=== PATIENT | male | born 1950 | race Caucasian/White ===

== ENCOUNTER 2016-10-01 16:03 | Inpatient (IN) | payer BC, OTHER ==
[~2016-10-01 16:03] MED LIST: ACIP20TA19
[2016-10-01 16:05] VITALS: BP 176/99; PULSE 60; RESP 24; TEMP 97.3; O2SAT 99
--- NOTE | 2016-10-01 16:07 | PD ---
Physical Exam Time Seen by Provider: 16:07 Narrative 65 y/o male presents with 6 hours of cp, dizziness, nausea. Worse when breathing deep. Vital signs reviewed. Seen at triage desk. Awaiting bed placement. Data Data Last Documented VS Vital Signs Date Time Temp Pulse Resp B/P Pulse Ox O2 Delivery O2 Flow Rate FiO2 10/01/16 16:05 97.3 60 24 176/99 99 MDM Medical Record Reviewed: Yes Supervised Visit with DIOGO: Alex Oliver October 01, 2016 16:07
--- NOTE | 2016-10-01 16:30 | RADRPT ---
EXAM DATE/TIME: 10/01/2016 16:23 [facility] COMPARISON: No previous studies available for comparison. INDICATIONS : Mid-upper left chest pain and pain when breathing. MEDICAL HISTORY : None. SURGICAL HISTORY : None. ENCOUNTER: Initial ACUITY: 1 day PAIN SCORE: 10/10 LOCATION: Bilateral chest FINDINGS: A single view of the chest demonstrates bibasilar atelectasis. Heart and the upper limits of normal i n size. The cardiomediastinal contours are unremarkable. Osseous structures are intact. Cervical fu richard plate. CONCLUSION: Bibasilar atelectasis. Edi Christine MD on October 01, 2016 at 16:28 Board Certified Radiologist. This report was verified electronically.
[2016-10-01 16:42] LABS: AUTOMATED NEUTROPHIL # 9.5 TH/MM3 (1.8-7.7); BASOPHIL # 0.1 TH/MM3 (0-0.2); BASOPHIL % 0.4 % (0.0-2.0); EOSINOPHIL # 0.2 TH/MM3 (0-0.4); EOSINOPHIL % 1.2 % (0.0-4.0); HEMATOCRIT 46.4 % (39.0-51.0); HEMO FLAGS DIFF FINAL; LYMPH % 20.2 % (9.0-44.0); LYMPHOCYTE # 2.7 TH/MM3 (1.0-4.8); MEAN CORPUSCULAR HEMOGLOBIN 29.9 PG (27.0-34.0); MEAN CORPUSCULAR HGB CONC 34.8 % (32.0-36.0); NEUT % 70.2 % (16.0-70.0); PLATELET COUNT 313 TH/MM3 (150-450); RED BLOOD COUNT 5.39 MIL/MM3 (4.50-5.90); RED CELL DISTRIBUTION WIDTH 13.7 % (11.6-17.2); WHITE BLOOD COUNT 13.5 TH/MM3 (4.0-11.0)
[2016-10-01 16:57] LABS: ANION GAP 9 MEQ/L (5-15); BICARBONATE 30.3 MEQ/L (21.0-32.0); BLOOD UREA NITROGEN 15 MG/DL (7-18); CHLORIDE 100 MEQ/L (98-107); GLOMERULAR FILTRATION RATE 55 ML/MIN (>89); POTASSIUM 3.7 MEQ/L (3.5-5.1); SODIUM (NA) 139 MEQ/L (136-145)
[2016-10-01 17:02] LABS: CREATINE KINASE 166 U/L (39-308)
[2016-10-01 17:10] LABS: INDIRECT BILIRUBIN 1.8 MG/DL (0.0-0.8); TOTAL BILIRUBIN ADULT 2.8 MG/DL (0.2-1.0)
[2016-10-01 17:14] LABS: CKMB 1.7 NG/ML (0.5-3.6)
[2016-10-01] MEDS ORDERED: ONDANSETRON HCL 4 MG/2 ML VIAL IV PUSH ONE (17:30)
[2016-10-01] MEDS ORDERED: MORPHINE SULFATE 4 MG/ML INJ IV PUSH ONE ×2 (17:30→20:15)
[2016-10-01] MEDS ORDERED: SODIUM CHLORIDE 0.9% FLUSH 10 ML FLUSH IV FLUSH PRN ×2 (17:30→21:00)
[2016-10-01] MEDS ORDERED: SODIUM CHLOR 0.9% 1000 ML INJ 1,000 ML IV ONE (17:30)
--- NOTE | 2016-10-01 17:56 | PD ---
HPI Chief Complaint: Chest Pain Time Seen by Provider: 17:30 Travel History International Travel<30 days: No Contact w/Intl Traveler<30days: No Traveled to known affect area: No History of Present Illness HPI Patient is a 65-year-old male presenting to the emergency department for evaluation of chest pain. Patient states pain started 10:30 this morning, initially was substernal with radiation across the anterior chest wall. It was accompanied by nausea and a feeling of lightheadedness. Patient states pain is worse with inspiration. He denies any headache, fever, chills, vomiting, diarrhea. Patient reports left upper quadrant and epigastric abdominal pain. He reports his pain is a 10 out of 10. Patient states that he is a history of gallbladder issues for the last year, he's had outpatient ultrasounds and CAT scans performed. He denies any significant past medical history, he has no history of tobacco use, drug use and denies any alcohol use. His primary care provider is Dr. Rene Aj [facility] Past Medical History Medical History: Denies Significant Hx GERD: Yes Past Surgical History Other Surgery: Yes (cervical discectomy) Social History Alcohol Use: No Tobacco Use: No Substance Use: No Allergies-Medications (Allergen,Severity, Reaction): Coded Allergies: No Known Allergies (Verified , 10/01/16) Reported Meds & Prescriptions Reported Meds & Active Scripts Active No Active Prescriptions or Reported Medications Review of Systems Except as stated in HPI: all other systems reviewed are Neg General / Constitutional: No: Fever, Chills HENT: Positive: Lightheadedness Cardiovascular: Positive: Chest Pain or Discomfort Respiratory: No: Shortness of Breath Gastrointestinal: Positive: Nausea, Abdominal Pain, No: Vomiting, Diarrhea Genitourinary: No: Dysuria Neurologic: No: Dizziness, Focal Abnormalities, Headache, Change in Mentation Physical Exam Narrative GENERAL: Well-developed, well-nourished, alert male. Appears uncomfortable, in no acute distress. SKIN: Focused skin assessment warm/dry. HEAD: Atraumatic. Normocephalic. EYES: Pupils equal and round. No scleral icterus. No injection or drainage. ENT: No nasal bleeding or discharge. Mucous membranes pink and moist. NECK: Trachea midline. No JVD. CARDIOVASCULAR: Regular rate and rhythm. No murmur appreciated. RESPIRATORY: No accessory muscle use. Clear to auscultation. Breath sounds equal bilaterally. GASTROINTESTINAL: Abdomen soft, tender to palpation in epigastrium and right upper quadrant, no rebound, positive bowel sounds. MUSCULOSKELETAL: No obvious deformities. No clubbing. No cyanosis. No edema. NEUROLOGICAL: Awake and alert. No obvious cranial nerve deficits. Motor grossly within normal limits. Normal speech. PSYCHIATRIC: Appropriate mood and affect; insight and judgment normal. Data Data Last Documented VS Vital Signs Date Time Temp Pulse Resp B/P Pulse Ox O2 Delivery O2 Flow Rate FiO2 10/01/16 20:18 78 26 195/97 100 Nasal Cannula 2 10/01/16 16:05 97.3 Orders Electrocardiogram (10/01/16 16:08) Complete Blood Count With Diff (10/01/16 16:08) Basic Metabolic Panel (Bmp) (10/01/16 16:08) Ckmb (Isoenzyme) Profile (10/01/16 16:08) Troponin I (10/01/16 16:08) Chest, Single Ap (10/01/16 ) Hepatic Functional Panel (10/01/16 16:20) Lipase (10/01/16 16:20) CKMB (10/01/16 16:17) CKMB% (10/01/16 16:17) Lipase (10/01/16 17:19) Gamma Gt (Ggt) (10/01/16 17:19) Lactic Acid (10/01/16 17:19) Urinalysis - C+S If Indicated (10/01/16 17:19) Iv Access Insert/Monitor (10/01/16 17:19) Ecg Monitoring (10/01/16 17:19) Oximetry (10/01/16 17:19) Sodium Chloride 0.9% Flush (Ns Flush) (10/01/16 17:30) Morphine Inj (Morphine Inj) (10/01/16 17:30) Sodium Chlor 0.9% 1000 Ml Inj (Ns 1000 M (10/01/16 17:30) Ondansetron Inj (Zofran Inj) (10/01/16 17:30) Us Abdomen Complete (10/01/16 ) Ondansetron Inj (Zofran Inj) (10/01/16 19:45) Pantoprazole Inj (Protonix Inj) (10/01/16 19:45) Al-Mag Hy-Si 40-40-4 Mg/Ml Liq (Mag-Al P (10/01/16 19:45) Lidocaine 2% Viscous (Xylocaine 2% Visco (10/01/16 19:45) Morphine Inj (Morphine Inj) (10/01/16 20:15) Admit Order (Ed Use Only) (10/01/16 20:22) Labs Laboratory Tests Test 10/01/16 10/01/16 10/01/16 16:17 17:35 18:45 White Blood Count 13.5 TH/MM3 Red Blood Count 5.39 MIL/MM3 Hemoglobin 16.1 GM/DL Hematocrit 46.4 % Mean Corpuscular Volume 86.0 FL Mean Corpuscular Hemoglobin 29.9 PG Mean Corpuscular Hemoglobin 34.8 % Concent Red Cell Distribution Width 13.7 % Platelet Count 313 TH/MM3 Mean Platelet Volume 7.3 FL Neutrophils (%) (Auto) 70.2 % Lymphocytes (%) (Auto) 20.2 % Monocytes (%) (Auto) 8.0 % Eosinophils (%) (Auto) 1.2 % Basophils (%) (Auto) 0.4 % Neutrophils # (Auto) 9.5 TH/MM3 Lymphocytes # (Auto) 2.7 TH/MM3 Monocytes # (Auto) 1.1 TH/MM3 Eosinophils # (Auto) 0.2 TH/MM3 Basophils # (Auto) 0.1 TH/MM3 CBC Comment DIFF FINAL Differential Comment Sodium Level 139 MEQ/L Potassium Level 3.7 MEQ/L Chloride Level 100 MEQ/L Carbon Dioxide Level 30.3 MEQ/L Anion Gap 9 MEQ/L Blood Urea Nitrogen 15 MG/DL Creatinine 1.32 MG/DL Estimat Glomerular Filtration 55 ML/MIN Rate Random Glucose 156 MG/DL Calcium Level 9.5 MG/DL Total Bilirubin 2.8 MG/DL Direct Bilirubin 1.0 MG/DL Indirect Bilirubin 1.8 MG/DL Aspartate Amino Transf 182 U/L (AST/SGOT) Alanine Aminotransferase 129 U/L (ALT/SGPT) Alkaline Phosphatase 94 U/L Total Creatine Kinase 166 U/L Creatine Kinase MB 1.7 NG/ML Troponin I LESS THAN 0.02 NG/ML Total Protein 8.0 GM/DL Albumin 4.3 GM/DL Lipase 158 U/L 154 U/L Lactic Acid Level 1.8 mmol/L Gamma Glutamyl Transpeptidase 556 U/L Urine Color YELLOW Urine Turbidity CLEAR Urine pH 6.5 Urine Specific [place] 1.012 Urine Protein NEG mg/dL Urine Glucose (UA) 70 mg/dL Urine Ketones NEG mg/dL Urine Occult Blood NEG Urine Nitrite NEG Urine Bilirubin NEG Urine Urobilinogen LESS THAN 2.0 MG/DL Urine Leukocyte Esterase NEG Urine RBC 1 /hpf Urine WBC 1 /hpf Urine Mucus FEW /lpf Microscopic Urinalysis Comment CULT NOT INDICATED MDM Medical Decision Making Medical Screen Exam Complete: Yes Emergency Medical Condition: Yes Interpretation(s) Last Impressions Chest X-Ray 10/01/16 0000 Signed Impressions: Service Date/Time: Saturday, October 01, 2016 16:23 - CONCLUSION: Bibasilar atelectasis. Edi Christine MD Abdomen Ultrasound 10/01/16 0000 Signed Impressions: Service Date/Time: Saturday, October 01, 2016 18:09 - CONCLUSION: 1. The liver is slightly diminished in size with small hepatic cyst. No free fluid. 2. Small amount of sludge in the gallbladder. No gallstones or biliary ductal dilatation. No hydronephrosis. Moy Arellano MD Laboratory Tests Test 10/01/16 10/01/16 10/01/16 16:17 17:35 18:45 White Blood Count 13.5 TH/MM3 Red Blood Count 5.39 MIL/MM3 Hemoglobin 16.1 GM/DL Hematocrit 46.4 % Mean Corpuscular Volume 86.0 FL Mean Corpuscular Hemoglobin 29.9 PG Mean Corpuscular Hemoglobin 34.8 % Concent Red Cell Distribution Width 13.7 % Platelet Count 313 TH/MM3 Mean Platelet Volume 7.3 FL Neutrophils (%) (Auto) 70.2 % Lymphocytes (%) (Auto) 20.2 % Monocytes (%) (Auto) 8.0 % Eosinophils (%) (Auto) 1.2 % Basophils (%) (Auto) 0.4 % Neutrophils # (Auto) 9.5 TH/MM3 Lymphocytes # (Auto) 2.7 TH/MM3 Monocytes # (Auto) 1.1 TH/MM3 Eosinophils # (Auto) 0.2 TH/MM3 Basophils # (Auto) 0.1 TH/MM3 CBC Comment DIFF FINAL Differential Comment Sodium Level 139 MEQ/L Potassium Level 3.7 MEQ/L Chloride Level 100 MEQ/L Carbon Dioxide Level 30.3 MEQ/L Anion Gap 9 MEQ/L Blood Urea Nitrogen 15 MG/DL Creatinine 1.32 MG/DL Estimat Glomerular Filtration 55 ML/MIN Rate Random Glucose 156 MG/DL Calcium Level 9.5 MG/DL Total Bilirubin 2.8 MG/DL Direct Bilirubin 1.0 MG/DL Indirect Bilirubin 1.8 MG/DL Aspartate Amino Transf 182 U/L (AST/SGOT) Alanine Aminotransferase 129 U/L (ALT/SGPT) Alkaline Phosphatase 94 U/L Total Creatine Kinase 166 U/L Creatine Kinase MB 1.7 NG/ML Troponin I LESS THAN 0.02 NG/ML Total Protein 8.0 GM/DL Albumin 4.3 GM/DL Lipase 158 U/L 154 U/L Lactic Acid Level 1.8 mmol/L Gamma Glutamyl Transpeptidase 556 U/L Urine Color YELLOW Urine Turbidity CLEAR Urine pH 6.5 Urine Specific [place] 1.012 Urine Protein NEG mg/dL Urine Glucose (UA) 70 mg/dL Urine Ketones NEG mg/dL Urine Occult Blood NEG Urine Nitrite NEG Urine Bilirubin NEG Urine Urobilinogen LESS THAN 2.0 MG/DL Urine Leukocyte Esterase NEG Urine RBC 1 /hpf Urine WBC 1 /hpf Urine Mucus FEW /lpf Microscopic Urinalysis Comment CULT NOT INDICATED Vital Signs Date Time Temp Pulse Resp B/P Pulse Ox O2 Delivery O2 Flow Rate FiO2 10/01/16 16:05 97.3 60 24 176/99 99 Differential Diagnosis Acute coronary syndrome versus AAA versus pulmonary embolism versus cholecystitis versus pancreatitis versus gastritis versus other Narrative Course Patient is 65-year-old male presenting to emergency for evaluation of chest pain that started at 10:30 this morning. Patient's vital signs are stable. Initial set of cardiac enzymes are negative. Chest x-ray shows bibasilar atelectasis. CBC with a white count of 13.5 with left shift. Lipase is normal , GGT pending, ultrasound of the gallbladder ordered and pending. Patient given pain medication per my attending physician. GGT is elevated Ultrasound shows gallbladder sludge, hepatic cyst. Urinalysis is unremarkable. Findings discussed with my attending physician. Patient will be admitted for further workup, HIDA scan. Discussed with Dr. Vidales who accepted admission. Diagnosis Primary Impression: Chest pain Qualified Code: R07.9 - Chest pain, unspecified type Additional Impression: Gallbladder sludge Admitting Information Admitting Physician Requests: Admit Scripts No Active Prescriptions or Reported Meds Condition: Stable Deloris Min October 01, 2016 17:56
[2016-10-01 18:10] LABS: GAMMA GT 556 U/L (15-85)
[2016-10-01 19:14] LABS: BLOOD, URINE NEG (NEG); COMMENT (UR) CULT NOT INDICATED; CULTURE IF INDICATED CULT NOT INDICATED; GLUCOSE,URINE 70 mg/dL (NEG); KETONE, URINE NEG (NEG); MUCUS URINE FEW /lpf (OCC); NITRITE,URINE NEG (NEG); PH, URINE 6.5 (5.0-8.5); URINE COLOR YELLOW (YELLW/STRAW)
[2016-10-01 19:38] VITALS: RESP 18; O2SAT 100
--- NOTE | 2016-10-01 19:38 | RADRPT ---
EXAM DATE/TIME: 10/01/2016 18:09 [facility] COMPARISON: No previous studies available for comparison. INDICATIONS : Abdominal pain. MEDICAL HISTORY : Gastroesophageal reflux disease. Gallstones. SURGICAL HISTORY : Cervical spine surgery. ENCOUNTER: Initial ACUITY: 1 day PAIN SCORE: 6/10 LOCATION: Bilateral upper quadrant MEASUREMENTS: LIVER: 13.1 cm length COMMON DUCT: 4 mm RIGHT KIDNEY: 10.7 x 5.5 x 5.3 cm LEFT KIDNEY: 10.2 x 5.9 x 5.1 cm SPLEEN: 11.6 cm length AORTA: 2.6cm maximal FINDINGS: LIVER: Small cyst right lobe 1.7 cm diameter. COMMON DUCT: No intraluminal mass or stone visualized. GALLBLADDER: Contains no stones, demonstrates no wall thickening or pericholecystic fluid. Trace gallbladder slud ge. PANCREAS: Obscured by bowel gas. RIGHT KIDNEY: No hydronephrosis, stone or mass. LEFT KIDNEY: No hydronephrosis, stone or mass. SPLEEN: No focal lesion. AORTA: Non aneurysmal. IVC: Within normal limits. CONCLUSION: 1. The liver is slightly diminished in size with small hepatic cyst. No free fluid. 2. Small amount of sludge in the gallbladder. No gallstones or biliary ductal dilatation. No hydronep hrosis. Moy Arellano MD on October 01, 2016 at 19:33 Board Certified Radiologist. This report was verified electronically.
[2016-10-01 19:39] VITALS: BP 177/104; PULSE 66; RESP 18; O2SAT 100
[2016-10-01] MEDS ORDERED: LIDOCAINE VISCOUS 2% SOLN 15 ML UDC PO ONE (19:45)
[2016-10-01] MEDS ORDERED: ALUMINUM/MAGNESIUM/SIMETH 30 ML CUP PO ONE (19:45)
[2016-10-01] MEDS ORDERED: PANTOPRAZOLE SODIUM 40 MG VIAL IVP ONE (19:45)
[2016-10-01] MEDS ORDERED: ONDANSETRON HCL 4 MG/2 ML VIAL IVP ONE (19:45)
[2016-10-01 20:18] VITALS: BP 195/97; PULSE 78; RESP 26; O2SAT 100
[2016-10-01] MEDS ORDERED: MORPHINE SULFATE 4 MG/ML INJ IV PRN (21:00)
[2016-10-01] MEDS ORDERED: MAGNESIUM HYDROXIDE SUSP 30 ML CUP PO PRN (21:00)
[2016-10-01] MEDS ORDERED: ONDANSETRON HCL 4 MG/2 ML VIAL IVP PRN (21:00)
[2016-10-01] MEDS ORDERED: SENNOSIDES 8.6 MG TAB PO PRN (21:00)
[2016-10-01] MEDS ORDERED: ACETAMINOPHEN 325 MG TAB PO PRN (21:00)
[2016-10-01] MEDS: SODIUM CHLORIDE 0.9% FLUSH 10 ML FLUSH IV FLUSH SCH (21:00)
[2016-10-01] MEDS ORDERED: NALOXONE HCL 0.4 MG/ML AMP IV PRN (21:00)
[2016-10-01] MEDS ORDERED: ENALAPRILAT 1.25 MG/ML VIAL IV PUSH PRN (21:00)
[2016-10-01] MEDS: SODIUM CHLOR 0.9% 1000 ML INJ 1,000 ML IV SCH (21:29)
[2016-10-01] MEDS: ENOXAPARIN SODIUM 40 MG/0.4 ML SYRINGE SQ SCH (21:29)
[2016-10-01] MEDS ORDERED: LORazepam 2 MG/ML VIAL IV PUSH ONE (21:30)
[2016-10-01 21:59] LABS: INTERNATIONAL NORMALIZED RATIO 1.2 RATIO; PROTHROMBIN TIME - PATIENT 13.6 SEC (9.8-11.6)
[2016-10-01 22:12] VITALS: PULSE 82
[2016-10-01] MEDS: MORPHINE SULFATE 4 MG/ML INJ IV PRN (23:05)
[2016-10-01] MEDS ORDERED: IOHEXOL 350 MG/ML 10 ML VIAL (for RAD DIAG) IV ONE (23:51)
[2016-10-02] VITALS (8 sets, daily range): BP systolic 116–188; BP diastolic 60–101; PULSE 61–88; RESP 16–18; TEMP 97–98.8; O2SAT 91–97
--- NOTE | 2016-10-02 00:07 | RADRPT ---
EXAM DATE/TIME: 10/01/2016 23:36 [facility] COMPARISON: No previous studies available for comparison. INDICATIONS : Patient with mid upper left chest pain. Elevated D-Dimer. Emphysema. IV CONTRAST: 75 cc Omnipaque 350 (iohexol) IV RADIATION DOSE: 5.63 CTDIvol (mGy) MEDICAL HISTORY : Gastroesophageal reflux disease. SURGICAL HISTORY : None. ENCOUNTER: Initial ACUITY: 1 day PAIN SCALE: 1/10 LOCATION: Bilateral chest TECHNIQUE: Volumetric scanning of the chest was performed using a pulmonary embolism protocol MIP images were re constructed. Using automated exposure control and adjustment of the mA and/or kV according to patien t size, radiation dose was kept as low as reasonably achievable to obtain optimal diagnostic quality images. FINDINGS: PULMONARY ARTERIES: No filling defects are seen in the pulmonary arteries through the segmental level. LUNGS: There is no consolidation or pneumothorax . No concerning pulmonary nodule is visualized. There is b ullous change present in both upper lobes. There is mild scarring in the lung bases. PLEURAE: There is no pleural thickening or pleural effusion. MEDIASTINUM: There is good visualization of the great vessels of the middle mediastinum. No evidence of mediastin al or hilar adenopathy/mass. MUSCULOSKELETAL: Within normal limits for patient age. MISCELLANEOUS: The visualized upper abdominal organs demonstrate no acute abnormality. There is a benign cystic stru cture noted in the liver. There is hepatic steatosis. CONCLUSION: 1. No evidence of pulmonary embolism. 2. Hepatic steatosis and benign appearing cyst in the left lobe. 3. Mild bullous change. 1. Stalin Johnston MD on October 02, 2016 at 0:02 Board Certified Radiologist. This report was verified electronically.
[2016-10-02] MEDS: MORPHINE SULFATE 4 MG/ML INJ IV PRN (03:35)
[2016-10-02 04:21] LABS: AUTOMATED NEUTROPHIL # 9.7 TH/MM3 (1.8-7.7); BASOPHIL % 0.2 % (0.0-2.0); EOSINOPHIL % 0.1 % (0.0-4.0); HEMATOCRIT 44.9 % (39.0-51.0); HEMO FLAGS DIFF FINAL; LYMPH % 8.5 % (9.0-44.0); MEAN CELL VOLUME 87.2 FL (80.0-100.0); MEAN CORPUSCULAR HEMOGLOBIN 29.2 PG (27.0-34.0); MEAN CORPUSCULAR HGB CONC 33.5 % (32.0-36.0); MONO % 6.7 % (0.0-8.0); NEUT % 84.5 % (16.0-70.0); PLATELET COUNT 286 TH/MM3 (150-450); RED BLOOD COUNT 5.15 MIL/MM3 (4.50-5.90); RED CELL DISTRIBUTION WIDTH 13.8 % (11.6-17.2); WHITE BLOOD COUNT 11.5 TH/MM3 (4.0-11.0)
[2016-10-02 04:35] LABS: BICARBONATE 29.8 MEQ/L (21.0-32.0); INDIRECT BILIRUBIN 2.3 MG/DL (0.0-0.8); POTASSIUM 3.6 MEQ/L (3.5-5.1)
[2016-10-02] MEDS: SODIUM CHLORIDE 0.9% FLUSH 10 ML FLUSH IV FLUSH SCH ×2 (09:00→21:00)
--- NOTE | 2016-10-02 09:24 | MH ---
cc: TATY ROSS DATE OF ADMISSION: 10/01/2016 DATE OF : 1950 International travel in the last 30-days: None. CHIEF COMPLAINT Epigastric pain radiating down into his abdomen with lightheadedness. 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 The patient states that he has had some epigastric chest pain which radiates down into his abdomen and he states that he has some pain in the lower part of his chest with inspiration. The patient does note a feeling of lightheadedness with a sense of nausea at the time of the pain. The pain became worse yesterday morning at 10:30 and the patient decided to come to the emergency room for further evaluation. He was admitted with this same type of pain at [facility] approximately a year ago and followed up with a surgeon as an outpatient but no further testing has been done since that time. The patient notes no headaches, no recent fever, no chills, no diarrhea. According to the record he has had some outpatient ultrasounds and CAT scans which he states showed some gallbladder sludge. The patient was hypertensive on admission, blood pressure 195/97, currently blood pressure 137/85. The patient is currently not having any pain. He is resting in the bed, no shortness of breath. The patient does note some right knee pain. On examination it is noted to have some mild edema but that is a chronic thing and he did not come to the hospital for any workup concerning his knees. PAST MEDICAL HISTORY 1. GERD. 2. Knee pain. 3. Cervical herniated disc. PAST SURGICAL HISTORY Cervical diskectomy, two levels. ALLERGIES None known. MEDICATIONS Takes no medications on a daily basis. SOCIAL HISTORY The patient is . Denies any tobacco, alcohol or illicit drug use. 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 REVIEW OF SYSTEMS A 12-point review was obtained, positives are noted in the HPI which are his epigastric pain radiating down into his abdomen associated with nausea and vomiting x 2 yesterday. The patient does have a decreased appetite when this pain starts. He does have some right knee pain which appears to be chronic. Pain with inspiration. Other than that, systems are negative. VITAL SIGNS: Temperature is 98.8, pulse 88, respirations 18. Initially on admission respiratory rate was 26, blood pressure 195/97 but now is 137/85. 02 sat is 91, has been 95-100. The patient has been on 2 liters nasal cannula. PHYSICAL EXAMINATION GENERAL: Well-nourished, well-developed male resting in the bed. He is alert and oriented and a good historian. SKIN: [place] mucous membranes. Skin turgor is good, warm and dry. HEENT: Atraumatic, normocephalic. PERRLA at 2. No scleral icterus. Mucous membranes are pink and moist. NECK: Neck is supple. CARDIOVASCULAR: Regular rate and rhythm. No murmurs, rubs or gallops. He has no edema and his pulses are intact. RESPIRATORY: Breath sounds are essentially clear anteriorly and posteriorly with no wheezes, rales or rhonchi. He does have some minimal decreased breath sounds in his bases but after cough and deep breath it seems to clear. ABDOMEN: Abdomen is round, soft. Tenderness noted in the epigastrium area and into the right quadrant and mid abdomen. Positive bowel sounds. No rebound tenderness. MUSCULOSKELETAL: No obvious deformities. Moves his extremities with purpose. He does have some swelling noted in the right knee with some pain. NEUROLOGIC: Alert, oriented, speech is clear. Hand machine stoppage frequency checker are equal. PSYCHIATRIC: Appropriate mood and affect. Insight and judgment is normal. DIAGNOSTIC DATA WBC count 13.5 on admission, now 11.5, RBC 5.15, hemoglobin 15, hematocrit 44.9, platelet count 286, neutrophil auto count 84.5, lymphocytes auto count 8.5. PT/INR is 1.2. D-dimer is 1.35. Chemistry, sodium 138, potassium 3.6, chloride 102, amnion gap 6, BUN 11, creatinine 1.09, GFR 68, random glucose 123, calcium 8.4, lactic acid initially 1.8. GGT is 556. Total bilirubin 4. Direct bilirubin 1.7, indirect 2.3. AST 436, ALT 351, alkaline phosphatase 103, total protein 7.4, albumin 3.9, lipase 154. Urine shows yellow, clear, PH 6.5, specific gravity 1.012, negative protein, glucose is high at 70, negative ketones, occult blood, nitrites, bilirubin and leukocyte esterase, a few mucus noted, culture is not indicated. IMAGING STUDIES Abdominal x-ray shows a small hepatic cyst, no free fluid, small amount of sludge in the gallbladder, no gallstones or biliary ductal dilation, no hydronephrosis. CT angiography shows no evidence of pulmonary emboli, hepatic stenosis with benign appearing cyst in the left lobe, mild bullous change. Chest x-ray shows bibasilar atelectasis. ASSESSMENT 1. Possible gallbladder disease with sludge noted, possible cholecystitis. 2. Atypical chest pain, rule out any cardiac event. 3. Hypertension, no history of. 4. GERD. 5. Right knee pain/arthritis versus effusion, history of. PLAN Our plan is to admit. The patient has had initial lab work. Will continue ECG monitoring and IV access. The patient has received morphine in the emergency room times one which helps relieve his pain. Vasotec is ordered p.r.n. for his blood pressure which is now under control. DVT prophylaxis with Lovenox. Will put him on Protonix for PUD prophylaxis. Will consult general surgeon for their expert opinion. The patient can be out of bed but only with assistance. Will currently maintain him n.p.o. except for a rare ice chip if he needs to wet his mouth. We will continue to monitor the patient's symptoms and evaluate his treatment regime based on his current assessment. The patient is full code, full aggressive care and we will follow. Dictated by: SONY Medley Taty Ross MD JP/CELINA /8:00 AM /8:26 AM Patient seen and examined as above in the ER Chart reviewed including meds labs and radiological data Previous notes reviewed Plan of care discussed with SONY as above Discussed with patient Condition guarded MTDD
--- NOTE | 2016-10-02 09:44 | MH ---
cc: TATY ROSS MD DATE OF ADMISSION 10/01/[address] Rene Aj. CHIEF COMPLAINT Epigastric pain. HISTORY OF PRESENT ILLNESS This is a pleasant 65 year old male who has had two years of intermittent epigastric, abdominal and chest pain. The patient states that he has not found any particular pattern that seems to bring it on. He has had multiple episodes over the last two years. He has actually been hospitalized at [facility]. He had an upper endoscopy which was reported to be normal. He also describes an endoscopic ultrasound which is also reported to be normal. He has had HIDA scans at [place]. He is not sure of the results of that. He has seen Dr. Bartlett, the surgeon who recommended his gallbladder come out. The patient deferred having this done. The patient states that today around 10:30 in the morning he developed severe epigastric pain. It seemed to radiate. It was burning pain up into his chest. It was worse when he would take a deep breath. He felt nauseated. His appetite became very poor. He had excruciating pain going to both sides. He wait several hours and them came to [place]. He has received several doses of morphine and Zofran. He is still having some discomfort. It has improved and it is not severe anymore but just moderate. He also feels a little bit lightheaded with the pain. MEDICATIONS On admission, none. ALLERGIES None. PAST MEDICAL HISTORY 1. Hypertension 2. Hyperlipidemia PAST SURGICAL HISTORY C5-C6 diskectomy SOCIAL HISTORY . Tobacco none. Alcohol none. 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 FAMILY HISTORY Mother is alive. He had her gallbladder removed. She also had a coronary artery bypass graft and a valve replaced. Father 62 of esophageal cancer. He was a smoker and drinker. Another brother at 64 of complications of cancer. REVIEW OF SYSTEMS His weight has been stable. His appetite has been stable and he is not having pain. He deferred having any immunizations including flu, pneumonia and shingles. He believes his Esophagogastroduodenoscopy to about a year ago. He follows with Dr. Grey and gets a colonoscopy every 10 years. 10 point review of systems no other pertinent findings. PHYSICAL EXAMINATION VITAL SIGNS: Afebrile. Respirations 20, blood pressure 195/97, O2 sat 100% on two liters. Pulse 78. GENERAL: This is a 65 year old male sitting in bed. He appears to be mildly uncooperative but in no respiratory distress. HEENT: Moist mucous membranes. Eyes - trace jaundice. NECK: Supple. CARDIOVASCULAR: Regular rate and rhythm. RESPIRATORY: Clear GASTROINTESTINAL: Epigastric and right upper quadrant tenderness. No rebound or guarding. GENITOURINARY: No CVA tenderness. No suprapubic tenderness. MUSCULOSKELETAL: Flo's negative. Distal pulses are palpable. NEUROLOGIC: Awake, alert and oriented times four. Speech is clear and fluent. Moving all extremities freely. LABORATORY DATA Creatinine 1.32, GFR estimated at 55, random glucose 156. Total bilirubin 2.8. Direct 1, indirect 1.8. GGT 556. AST 182, ALT 29, alkaline phosphatase 94. Troponin T is negative. Lipase is normal at 158. Urinalysis shows glucose 70. CBC shows white count 13.5. IMAGING STUDIES Ultrasound of the gallbladder shows the liver is diminished in size with small hepatic cyst and free fluid, small amount of sludge in the gallbladder. No gallstones or biliary dilatation. No hydronephrosis. Chest x-ray shows bibasilar atelectasis. CARDIOLOGY STUDIES Electrocardiogram showed sinus bradycardia with no acute changes. IMPRESSION 1. Epigastric pain most consistent with gallbladder disease. 2. Elevated liver enzymes 3. Hypertension 4. Acute kidney injury 5. Leukocytosis DISCUSSION The patient is being placed on observation status with Dr. Ross's service. The plan is to rule him out for myocardial infarction. Serial troponins have been ordered and repeat electrocardiogram has been ordered for the morning. We will repeat liver enzymes in the morning. We will gently hydrate the patient. We will use as needed medications to control his blood pressure. We will to control his pain and nausea. We will check a HIDA scan as the gallbladder appears to be the mostly likely culprit for his symptoms. We will also ask Dr. Bartlett to follow up with the patient as he has seen him as an outpatient and has recommended his gallbladder be removed in the past. The patient was not read for this. The patient states that he is ready to have this taken care of now. Anticipated length of stay is two days. Anticipated discharge is home. Dictated by CHARLOTTE Lawson Taty Ross MD JP/ /9:26 PM /9:40 AM Patient seen and examined as above Chart reviewed Discussed with patient GREG
--- NOTE | 2016-10-02 10:22 | EKG ---
Date Performed: 10/02/2016 Time Performed: 06:09:52 PTAGE: 65 years EKG: Sinus rhythm NORMAL ECG PREVIOUS TRACING : 10/02/2016 06.09 DOCTOR: Tj Linares Interpretating Date/Time 10/07/2016 07:38:29
--- NOTE | 2016-10-02 11:00 | EKG ---
Date Performed: 10/01/2016 Time Performed: 16:15:06 PTAGE: 65 years EKG: SINUS BRADYCARDIA BORDERLINE ECG NO PREVIOUS TRACING DOCTOR: Tj Linares Interpretating Date/Time 10/02/2016 10:58:42
--- NOTE | 2016-10-02 11:20 | RADRPT ---
EXAM DATE/TIME: 10/02/2016 09:29 This report includes an Addendum and supersedes previous reports for this exam. [facility] COMPARISON: CT PULMONARY ANGIOGRAM, October 01, 2016, 23:36. INDICATIONS : Abdominal pain. DOSE: 4.3 mCi Tc99m Mebrofenin IV MEDICAL HISTORY : Gastroesophageal reflux disease. SURGICAL HISTORY : Cervical spine. ENCOUNTER: Initial ACUITY: 1 day PAIN SCALE: 10/10 LOCATION: Left upper quadrant TECHNIQUE: Following the intravenous administration of radiotracer, dynamic sequential images were performed wit h continuous acquisition. FINDINGS: There is poor extraction of radiotracer with very faint activity seen in the common duct and small elo wel at one hour. Findings suggest significant hepatocellular disease. There is no complete obstruction. CONCLUSION: Probable significant hepatocellular disease. Agus Magallanes MD FACR on October 02, 2016 at 11:17 Board Certified Radiologist. This report was verified electronically. ADDENDUM: COMPARISON: US ABDOMEN - COMPLETE, October 01, 2016, 18:09. There is continued nonvisualization of the gallbladder. There is prominent hepatic activity remaining . Cholecystitis is not excluded but 24-hour delayed image would be helpful considering the hepatocell ular disease. Anthony Rivera MD on October 02, 2016 at 14:05 Board Certified Radiologist. This report was verified electronically.
[2016-10-02] MEDS: PANTOPRAZOLE SOD 40 MG DELAYED RELEASE TAB PO SCH (11:31)
[2016-10-02] MEDS: SODIUM CHLOR 0.9% 1000 ML INJ 1,000 ML IV SCH (11:32)
--- NOTE | 2016-10-02 14:49 | MB ---
cc: [employer] DATE OF CONSULTATION 10/02/2016 CHIEF COMPLAINT Abdominal pain. HISTORY OF PRESENT ILLNESS Mr. Mar is a very pleasant 65-year-old gentleman who came to the emergency apartment last night with complaints of severe epigastric abdominal pain and chest pain. The patient is known to Dr. Anthony Bartlett who he saw approximately a year ago. The patient underwent extensive workup at that time and was found to have chronic cholecystitis. He was advised to undergo cholecystectomy. However, the patient was fearful of surgery and failed to schedule the procedure. Since then he states he has been doing okay. However, yesterday he developed this severe episode of pain. He states the pain was 11/10. He states that he had a severe nausea but no emesis. He said the pain was made worse by taking a deep breath. He reports the pain was mainly in his bilateral upper quadrants with radiation to his back and right side. The patient was seen and evaluated in the emergency department where he was worked up for pulmonary embolism. Once this workup was negative attention was directed to his gallbladder. The patient had a gallbladder ultrasound which showed gallbladder sludge but did not show any pericholecystic fluid or gallbladder wall thickening. The patient was noted to have elevated LFTs and surgical consultation was requested. PAST MEDICAL HISTORY None. PAST SURGICAL HISTORY He has had a cervical diskectomy. MEDICATIONS He takes no active medications according to him. ALLERGIES He has no known drug allergies. SOCIAL HISTORY The patient is , lives locally, does not smoke or drink. 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 REVIEW OF SYSTEMS Please see HPI. PHYSICAL EXAMINATION VITAL SIGNS: Temperature is 98, pulse is 80, blood pressure 130/80, respiratory rate 20. GENERAL: This is a pleasant middle-aged male sitting in the bed in no apparent distress. He is hungry and would like something to eat. HEENT: Pupils equal and reactive to light. Sclerae are white. Oropharynx is clear and moist. Neck is supple. No masses. LUNGS: Clear to auscultation bilaterally. HEART: S1-S2 no murmur. ABDOMEN: Soft, minimally tender right upper quadrant. No rebound or guarding. Negative Olivarez sign. No abdominal wall hernias. Bowel sounds are active. EXTREMITIES: Free range of motion x4. NEUROLOGICAL: Alert and oriented x3. LABORATORY DATA White blood cell count was 13 last night, it is 11 this morning. Hemoglobin is 15, platelet count is 286. Electrolytes all within normal limits. LFTs elevated with total bilirubin of 4, AST of 436, ALT of 351, alkaline phosphatase 103. Lipase is 154. Hepatitis titer is negative. IMAGING STUDIES Gallbladder ultrasound shows gallstones. HIDA scan shows poor tracer accumulation but there is a small amount of tracer seen in the small bowel. IMPRESSION Probable acute cholecystitis with possibly choledocholithiasis. PLAN At this point the patient needs to be worked up further. Would consider GI consultation with Dr. Grey, his account representative. The patient may require ERCP or MRCP to evaluate the common bile duct to make sure it is clear. Once this has been addressed he would be a candidate for a laparoscopic cholecystectomy. Risks and benefits of open laparoscopic cholecystectomy was discussed with him in the room and he is agreeable. Will recheck his LFTs in the morning and see if they are trending downward. Will await Dr. Grey's opinion regarding ERCP or MRCP prior to surgical intervention. I advised the patient he may be a candidate for surgery on or Friday if his workup is completed. MD WILBERT Mccall/HAIR /1:49 PM /2:25 PM
--- NOTE | 2016-10-02 15:09 | MB ---
cc: REBECCA SADLER M.D. DATE OF CONSULTATION: 10/02/2016 1951 REASON FOR CONSULTATION Evaluation of epigastric pain, abnormal liver enzymes, nausea, vomiting. HISTORY OF PRESENT ILLNESS This is a pleasant 65-year-old male who was admitted with epigastric substernal chest discomfort which began at 10:00 a.m. yesterday and proceeded to continue and worsen throughout the day and evening. He presented to the emergency room for further evaluation. In the past he was evaluated at [facility] in 2014 for less severe episode of abdominal pain, epigastric pain, etc. At that time he also had what appeared to be mild pancreatitis, probably gallstone pancreatitis. Endoscopic ultrasound at that time was benign. He had previously been recommended that his gallbladder should be removed and the patient was sent to have surgery. On this admission he has had nausea and vomiting as well. He received morphine, Zofran with control of his discomfort, today he is feeling much better, pain has subsided completely. His labs were remarkable for elevated liver enzymes, SGOT 182, SGPT was 436. The total bilirubin was 4.0. Lipase was noted at 154. Abdominal ultrasound was obtained. The common bile duct was noted to be normal. There was a small amount of sludge in the gallbladder. No obvious stones were seen. He did have a small hepatic cyst. There was no ductal dilatation noted. He also had a HIDA scan obtained, results are pending. The patient reports he does not consume any alcohol. We were asked to evaluate him further. PAST MEDICAL HISTORY His past history is remarkable for: 1. Gastroesophageal reflux disease. 2. Dysphagia. 3. He has a history of a cervical herniated disk and diskectomy ALLERGIES No known allergies. MEDICATIONS No medicines. FAMILY HISTORY Negative from a GI standpoint. SOCIAL HISTORY Denies tobacco or illicit drug use or alcohol. REVIEW OF SYSTEMS A 12-point review of systems as stated in the HPI. He has had epigastric pain radiating to his abdomen and also to the chest which has now improved. He has had no fever, chills or jaundice or weight loss. PHYSICAL EXAMINATION GENERAL: Well-developed, well-nourished male, alert and oriented x3, in no acute distress. VITAL SIGNS: Stable. He is afebrile. HEENT: Exam is unremarkable. Oral mucosa moist. NECK: Neck is supple. CARDIAC: S1-S2, regular rhythm. CHEST: Chest is clear to A&P. ABDOMEN: Soft, nontender, benign. No mass or organomegaly. No distension is noted. EXTREMITIES: Without clubbing, cyanosis or edema. LABORATORY DATA Other labs his CBC revealed white count 11.5, hemoglobin was normal. IMPRESSION A 65-year-old male presents with epigastric and chest pain. Most likely related to gallbladder disease. The patient reveals abnormal liver enzymes as well. I would suspect the patient passed sludge and/or small stone causing extreme pain and possibly even some acute pancreatitis. He had a similar less severe bout in 2014. PLAN Discussed the case with Dr. Ignacio Quevedo. I would agree with proceeding with laparoscopic cholecystectomy when stable. Would follow liver enzymes to see if they trend downward. If they remain high ___ may be contemplated with the laparoscopic procedure. However, ultrasound does not reveal any ductal dilatation at this time. Would continue analgesics, antiemetics and IV hydration as needed. Liver enzymes will be followed up as well. Will follow the patient with you. Thank you for this consult. MD JAYDA Mallory/CELINA /2:02 PM /2:34 PM
[2016-10-02] MEDS: ENOXAPARIN SODIUM 40 MG/0.4 ML SYRINGE SQ SCH (22:34)
[2016-10-03 01:05] VITALS: PULSE 61
[2016-10-03 04:41] VITALS: BP 160/74; PULSE 67; RESP 18; TEMP 98.8; O2SAT 87
[2016-10-03 05:13] LABS: INDIRECT BILIRUBIN 2.8 MG/DL (0.0-0.8); TOTAL BILIRUBIN ADULT 3.4 MG/DL (0.2-1.0)
[2016-10-03 07:22] VITALS: BP 145/86; PULSE 67; RESP 18; TEMP 98.6; O2SAT 95
[2016-10-03] MEDS: PANTOPRAZOLE SOD 40 MG DELAYED RELEASE TAB PO SCH (07:51)
[2016-10-03] MEDS: SODIUM CHLOR 0.9% 1000 ML INJ 1,000 ML IV SCH ×2 (07:51→13:00)
[2016-10-03] MEDS: SODIUM CHLORIDE 0.9% FLUSH 10 ML FLUSH IV FLUSH SCH ×3 (07:52→20:01)
--- NOTE | 2016-10-03 08:03 | HHI.PR ---
Subjective Subjective Remarks NPO no abd. pain no n/v no fever no cp no sob no acute changes overnight Review of Systems Constitutional Constitutional Remarks 12 point ROS completed, negative except as noted above Vitals/Results Vital Signs Vital Signs Date Time Temp Pulse Resp B/P Pulse Ox O2 Delivery O2 Flow Rate FiO2 10/03/16 07:22 98.6 67 18 145/86 95 10/03/16 04:41 98.8 67 18 160/74 87 10/03/16 01:05 61 10/02/16 23:40 97.8 68 16 148/81 93 10/02/16 19:57 98.5 61 18 134/81 97 10/02/16 16:00 98.4 69 18 128/72 95 10/02/16 12:07 97.3 74 18 138/82 10/02/16 08:24 98.5 69 18 116/77 94 CBC/BMP: 10/02/16 0329 10/02/16 0329 Lab Results Laboratory Tests Test 10/03/16 04:16 Total Bilirubin 3.4 MG/DL Direct Bilirubin 0.6 MG/DL Indirect Bilirubin 2.8 MG/DL Aspartate Amino Transf 186 U/L (AST/SGOT) Alanine Aminotransferase 321 U/L (ALT/SGPT) Alkaline Phosphatase 131 U/L Total Protein 6.7 GM/DL Albumin 3.4 GM/DL Physical Exam General General Appearance: Well Developed, Well Nourished, No Acute Distress, Comfortable Eyes Eye Exam: Pupils Equal, Pupils Reactive Ears & Nose Ears & Nose Exam: Nasal Mucosa [place] Throat Throat Exam: Oral Mucosa [place] & Moist Neck Neck Exam: Neck Supple Pulmonary Resp Exam: Breath Sounds Equal, No Distress Cardiology CV Exam: Regular, Good Perfusion Gastrointestinal/Abdomen GI Exam: Soft, Non-Tender, Bowel Sounds Present, Non-Distended Musculoskeletal MS Exam: Joints Intact Integumentary Skin Exam: Warm, Intact Extremeties Extremities Exam: No Edema, Pedal Pulses Palpable Neurologic Neuro Exam: Alert, Awake, Oriented, Speech Clear, Moving All Extremities, No Focal Deficits Psychiatric Psych Exam: Appropriate Responses VTE Prophylaxis VTE Prophylaxis Device: SCDs Assessment/Plan Problem List: (1) Gallbladder sludge (2) Chest pain (3) Choledocholithiasis (4) HTN (hypertension) (5) Elevated LFTs (6) LEANDRO (acute kidney injury) Assessment/Plan abd. pain, hx GB disease appreciate GI and surgical input Per GI, may have passed stone or sludge, agrees with surgery. No ductal dilatation LFTs trending down HIDA scan results noted surgery has evaluated, for poss. cholecystectomy today NPO continue IVF Pain management continue home medications LEANDRO, resolving continue IVF BMP in am SCDs for DVT prophylaxis continue with above tx change to inpatient admission, going for surgery. Labs in am D/W RN D/W Dr. Ross D/W pt This patient was seen by myself and Dr. Ross, this pt. was seen on is behalf. Problem Qualifiers (1) Chest pain: Qualified Code: R07.9 - Chest pain, unspecified type (2) HTN (hypertension): Qualified Code: I10 - Essential hypertension Jina Penn October 03, 2016 08:03
[2016-10-03] MEDS ORDERED: MIDAZOLAM HCL 2 MG/2 ML VIAL ONE (10:42)
[2016-10-03] MEDS ORDERED: DEXAMETHASONE SOD PHOS 4 MG/ML VIAL ONE (10:42)
[2016-10-03] MEDS ORDERED: metroNIDAZOLE 500 MG INJ 100 ML IV ONE (11:15)
[2016-10-03] MEDS ORDERED: ceFAZolin 2 GM PREMIX 50 ML ONE (11:15)
[2016-10-03] MEDS ORDERED: BUPIVACAINE/EPINEPHRINE 0.5% PF 30 ML VIAL INFIL ONE (11:17)
[2016-10-03] MEDS ORDERED: ACETAMINOPHEN 1000 MG/100 ML VIAL IV ONE (11:35)
[2016-10-03] MEDS ORDERED: IOHEXOL 350 MG/ML 50 ML BTL (for RAD DIAG) ONE (11:53)
[2016-10-03] MEDS ORDERED: PROPOFOL 200 MG/20 ML AMP IV ONE (12:00)
[2016-10-03] MEDS ORDERED: LACTATED RINGER'S 1000 ML INJ 1,000 ML IV ONE (12:00)
[2016-10-03] MEDS ORDERED: NEOSTIGMINE 3 MG/3 ML SYR IV ONE (12:00)
[2016-10-03] MEDS ORDERED: ONDANSETRON HCL 4 MG/2 ML VIAL IV PUSH ONE (12:00)
--- NOTE | 2016-10-03 12:32 | PD.OP ---
Operative Report Date of Surgery: October 03, 2016 Preoperative Diagnosis: cholecystitis, elevated LFTs Postoperative Diagnosis: same, distal CBD stones Procedure: Lap rubia with IOC, Lap core liver biopsy intra operative fluoroscopy Anesthesia: general Surgeon: Anthony Bartlett Environmental Programs Manager(s): staff Operation and Findings: inflamed GB to path. Two distal non obstructing filling defects, c/w CBD stones on cholangiogram. liver core biopsy x 2 to path. EBL less than 25 ml. Anthony Bartlett MD October 03, 2016 12:32
[2016-10-03] MEDS ORDERED: SODIUM CHLORIDE 0.9% FLUSH 10 ML FLUSH IV FLUSH PRN (12:45)
[2016-10-03] MEDS ORDERED: Post-op Orders (for Pharmacy) MISC XX ONE (12:45)
--- NOTE | 2016-10-03 12:48 | HHI.GIFU ---
Subjective Remarks sedated post anesthesia and lap choly w findings 2 small stones cbd on IOC Objective Vitals I&O Vital Signs Date Time Temp Pulse Resp B/P Pulse Ox O2 Delivery O2 Flow Rate FiO2 10/03/16 07:22 98.6 67 18 145/86 95 10/03/16 04:41 98.8 67 18 160/74 87 10/03/16 01:05 61 10/02/16 23:40 97.8 68 16 148/81 93 10/02/16 19:57 98.5 61 18 134/81 97 10/02/16 16:00 98.4 69 18 128/72 95 Laboratory Laboratory Tests Test 10/03/16 04:16 Total Bilirubin 3.4 Direct Bilirubin 0.6 Indirect Bilirubin 2.8 Aspartate Amino Transf 186 (AST/SGOT) Alanine Aminotransferase 321 (ALT/SGPT) Alkaline Phosphatase 131 Total Protein 6.7 Albumin 3.4 Physical Exam CARDIAC: Regular rate and rhythm with no murmur gallop or rubs. ABDOMEN: Soft, mild distention , nontender;; bowel sounds are present SKIN: Normal; no rash; no jaundice. Assessment and Plan Assessment: (1) Choledocholithiasis Plan ERCP tomorrow w stone extraction...will discuss w and all PRBS including pancreatitis... cont current therapy post op Antonio Ramos MD October 03, 2016 12:48
[2016-10-03] MEDS ORDERED: DO NOT ADM ANY ANTICOAGULANT DRUGS PRN (13:30)
[2016-10-03] MEDS: MORPHINE SULFATE 4 MG/ML INJ IV PRN ×3 (14:10→21:07)
[2016-10-03] MEDS ORDERED: fentaNYL CITRATE 250 MCG/5 ML AMP ONE (14:56)
[2016-10-03 17:00] VITALS: BP 136/95; PULSE 76; RESP 16; TEMP 98; O2SAT 97
[2016-10-03 20:00] VITALS: BP 142/85; PULSE 102; PULSE 92; RESP 20; TEMP 98; O2SAT 97
[2016-10-03] MEDS: ENOXAPARIN SODIUM 40 MG/0.4 ML SYRINGE SQ SCH (21:06)
[2016-10-04] VITALS (9 sets, daily range): BP systolic 128–139; BP diastolic 74–86; PULSE 51–92; RESP 18–20; TEMP 96.1–99.1; O2SAT 96–99
[2016-10-04] MEDS ORDERED: CHLORHEXIDINE GLUCONATE 2 % 1 PACK (2 CLOTHS) TOPICAL PRN (03:00)
[2016-10-04] MEDS ORDERED: POVIDONE IODINE 5% (ANTISEPSIS KIT) 4 APPLICATIONS EACH NARE PRN (03:00)
[2016-10-04] MEDS ORDERED: LACTATED RINGER'S 1000 ML IV PRN (03:00)
[2016-10-04] MEDS: MORPHINE SULFATE 4 MG/ML INJ IV PRN ×3 (05:37→18:22)
[2016-10-04] MEDS: SODIUM CHLOR 0.9% 1000 ML INJ 1,000 ML IV SCH ×2 (05:40→14:28)
[2016-10-04 06:03] LABS: HEMATOCRIT 42.1 % (39.0-51.0); MEAN CELL VOLUME 86.9 FL (80.0-100.0); MEAN CORPUSCULAR HEMOGLOBIN 29.9 PG (27.0-34.0); MEAN CORPUSCULAR HGB CONC 34.4 % (32.0-36.0); PLATELET COUNT 269 TH/MM3 (150-450); RED BLOOD COUNT 4.84 MIL/MM3 (4.50-5.90); RED CELL DISTRIBUTION WIDTH 13.6 % (11.6-17.2); REVIEW FLAG FINAL; WHITE BLOOD COUNT 13.2 TH/MM3 (4.0-11.0)
[2016-10-04 06:31] LABS: ALKALINE PHOSPHATASE 111 U/L (45-117); ALT (GPT) 227 U/L (12-78); ANION GAP 7 MEQ/L (5-15); AST (GOT) 103 U/L (15-37); BICARBONATE 28.6 MEQ/L (21.0-32.0); BLOOD UREA NITROGEN 12 MG/DL (7-18); CHLORIDE 104 MEQ/L (98-107); GLOMERULAR FILTRATION RATE 65 ML/MIN (>89); POTASSIUM 3.9 MEQ/L (3.5-5.1); SODIUM (NA) 140 MEQ/L (136-145); TOTAL BILIRUBIN ADULT 1.7 MG/DL (0.2-1.0)
[2016-10-04] MEDS: SODIUM CHLORIDE 0.9% FLUSH 10 ML FLUSH IV FLUSH SCH ×4 (08:02→19:27)
[2016-10-04] MEDS: PANTOPRAZOLE SOD 40 MG DELAYED RELEASE TAB PO SCH (08:02)
--- NOTE | 2016-10-04 08:34 | HHI.PR ---
Subjective Subjective Notes c/o urinary urgency, dribbling. Has some mild LLQ discomfort. Objective Vitals/I&O Vital Signs Date Time Temp Pulse Resp B/P Pulse Ox O2 Delivery O2 Flow Rate FiO2 10/04/16 04:00 98.0 90 20 129/76 98 10/03/16 17:00 Room Air 10/03/16 13:15 2 Labs Laboratory Tests Test 10/04/16 05:25 White Blood Count 13.2 Red Blood Count 4.84 Hemoglobin 14.5 Hematocrit 42.1 Mean Corpuscular Volume 86.9 Mean Corpuscular Hemoglobin 29.9 Mean Corpuscular Hemoglobin 34.4 Concent Red Cell Distribution Width 13.6 Platelet Count 269 Mean Platelet Volume 7.6 Sodium Level 140 Potassium Level 3.9 Chloride Level 104 Carbon Dioxide Level 28.6 Anion Gap 7 Blood Urea Nitrogen 12 Creatinine 1.14 Estimat Glomerular Filtration 65 Rate Random Glucose 104 Calcium Level 8.2 Total Bilirubin 1.7 Aspartate Amino Transf 103 (AST/SGOT) Alanine Aminotransferase 227 (ALT/SGPT) Alkaline Phosphatase 111 Total Protein 6.7 Albumin 3.3 Abdomen: Non-distended, Other (minimal discomfort to palpation supra pubic and LLQ. Incisions all healing well beneath steri strips.) Extremities: No edema, Perfused, SCD's on A/P Assessment and Plan POD 1 s/p lap rubia, with IOC, lap liver biopsy. CBD stones, for ERCP this morning. Urinary retention, will bladder scan and start flomax, has no h/o BPH, sees Dr Kearns yearly. Home when OK after ERCP, hopefully retention resolves with time and flomax. Would recommend follow up with Dr Kearns as outpatient. Anthony Bartlett MD October 04, 2016 08:34
[2016-10-04] MEDS: TAMSULOSIN HCL 0.4 MG CAP PO SCH (08:48)
--- NOTE | 2016-10-04 09:11 | RADRPT ---
EXAM DATE/TIME: 10/03/2016 11:55 [facility] COMPARISON: No previous studies available for comparison. INDICATIONS : Obstruction. FLUORO TIME: 1.59 minutes IMAGE COUNT: 2 MEDICAL HISTORY : None. SURGICAL HISTORY : None. ENCOUNTER: Initial ACUITY: 1 day PAIN SCORE: Non-responsive. LOCATION: Right abdomen PROCEDURE: CHOLANGIOGRAM, OPERATIVE 1. Intraoperative cholangiogram. In the operating room, the cystic duct stump was injected and radiographs obtained. The examination demonstrates no evidence of common duct stone with free spill into the duodenum CONCLUSION: No evidence of common duct stone. Anthony Rivera MD on October 04, 2016 at 9:09 Board Certified Radiologist. This report was verified electronically.
[2016-10-04] MEDS ORDERED: IOHEXOL 350 MG/ML 100 ML BTL (for RAD DIAG) OTHER ONE (09:44)
[2016-10-04] MEDS ORDERED: PROPOFOL 200 MG/20 ML AMP IV ONE (09:44)
--- NOTE | 2016-10-04 11:05 | RADRPT ---
EXAM DATE/TIME: 10/04/2016 10:09 [facility] COMPARISON: No previous studies available for comparison. INDICATIONS : Obstruction. FLUORO TIME: 3.54 minutes IMAGE COUNT: 7 CONTRAST: Instilled by Ordering Physician MEDICAL HISTORY : None. SURGICAL HISTORY : Cholecystectomy. ENCOUNTER: Initial ACUITY: 1 day PAIN SCORE: Non-responsive. LOCATION: Right upper quadrant FINDINGS: An ERCP was performed by the ordering physician. The images demonstrate no evidence of duct stone or dilatation. Balloon extraction of the duct was pe rformed CONCLUSION: ERCP as above. Anthony Rivera MD on October 04, 2016 at 11:03 Board Certified Radiologist. This report was verified electronically.
--- NOTE | 2016-10-04 11:10 | MP ---
cc: REBECCA SADLER DAVID G. M.D. DATE OF SURGERY: 10/03/2016 PREOPERATIVE DIAGNOSIS: Cholecystitis. Elevated liver function tests. POSTOPERATIVE DIAGNOSIS: Cholecystitis. Elevated liver function tests. Distal common bile duct stones. OPERATION: Laparoscopic cholecystectomy with intraoperative cholangiography. Laparoscopic core liver biopsy SURGEON: Dr. Anthony Bartlett ANESTHESIA General INDICATIONS This is a pleasant 71-year-old gentleman who I saw about 15 months ago in consultation by Dr. Grey for evaluation of the laparoscopic cholecystectomy. A lap cholecystectomy was recommended, however, the patient declined to proceed with these surgical recommendations. He presented to the emergency room 2 days ago with abdominal pain and elevated liver function tests. A workup demonstrated findings consistent with cholecystitis. A Hida scan did not show obstruction of the distal common bile duct. Plans are made for laparoscopic cholecystectomy with cholangiogram and possible liver biopsy. INTRAOPERATIVE FINDINGS Inflamed gallbladder removed and sent to pathology. Intraoperative angiogram demonstrated two distal common bile duct filling defects consistent with nonobstructing stones. Mildly dilated common bile duct. Liver core biopsy x2 sent to pathology. Estimated blood loss less than 25 Ml. DESCRIPTION OF PROCEDURE IN DETAIL The patient identified as Jordan Fry taken to the operating room and placed in the supine position. Sequential compression devices were placed on bilateral lower extremities. Following induction of adequate general tracheal anesthesia the patient's abdomen was prepped and draped in usual sterile fashion with Chloraprep. A time-out procedure was performed. Following completion of time-out procedure everyone's satisfaction within the room 0.25% Marcaine with epinephrine was placed at each incision site. Infraumbilical 2 cm incision was carried out with scalpel dissection posterior level of midline fascia. The base of the umbilicus was retracted anteriorly fascia was incised in vertical fashion allowing for entry the peritoneal cavity with the surgeon's finger. The applied medical balloon Ariadne trocar was placed in the peritoneal cavity its balloon inflated to insufflation to level of 15 mmHg ensued. The patient was placed in reverse Trendelenburg position turned to left and to upper abdominal midline 5 mm trocars placed in the peritoneal cavity direct laparoscopic view after incision skin with scalpel. The gallbladder was immediately noted to be distended, it could not be grasped. There was of fair amount of omentum obstructing the view. A right lateral abdominal 5 mm trocars placed in the peroneal cavity direct laparoscopic view after incision skin with scalpel. The Emily flex liver retractor was placed through the right lateral abdominal the trocar to assist in visualization. The gallbladder was decompressed using the harmonic scalpel with suction device. The gallbladder was removed in the gallbladder fossa in a dome down technique using a combination of harmonic scalpel and suction dissection. The cystic artery and cystic duct were then isolated from surrounding tissues cystic artery was divided structure with the gallbladder using the harmonic scalpel. The cystic duct was ligated at its juncture with the gallbladder using a 0-PDS Endoloop. Through a separate stab incision in the right subcostal position. The cholangiogram catheter was placed through it the introducer into the peritoneal cavity. The cystic duct was then resected just adjacent to the PDS Endoloop and the cholangiogram catheter was placed in the cystic duct. The plastic flange activated and saline flushed through there was no apparent obstruction to saline flow. Using the intraoperative C-arm fluoroscopy. The intraoperative cholangiogram was performed using full strength dye, this allowed for identification. The to filling defects in the distal common duct. Proximal hepatic ducts showed mild biliary ductal dilatation without additional filling defects. Cholangiogram catheter was removed. The distal cystic duct was ligated with 0-PDS Endoloop and the resected duct was completely divided using the harmonic scalpel. The gallbladder was placed into an Endo retrieval bag and removed through the infraumbilical fascial port incision site passed off field for pathologic evaluation. Through the cholangiogram sheath incision. The biopsy gun was used to take two liver core biopsies. Sufficient material was obtained and hemostasis was assured with the harmonic scalpel. The right upper quadrant irrigated copiously with saline. The cystic duct ligature remained intact. The cystic arterial stump was hemostatic. The gallbladder fossa demonstrated no evidence of bilious or bloody drainage. Brief survey of the remainder intra-abdominal contents demonstrated no other significant abnormalities. Remaining local anesthetic was placed in right upper quadrant. Trocars were removed under direct visualization was no loss of bleeding from trocar sites. The abdomen was desufflated through the infraumbilical port was then removed. The infraumbilical fascial incision was closed with multiple interrupted 0 Vicryl sutures. The skin incisions were irrigated with saline closed with 4-0 Monocryl subcuticular sutures. Dressings were applied with Mastisol inch brown Steri-Strips. The patient tolerated the procedure without apparent complication. Sponge, needle and instrument counts were correct at the end of the case. MD ANAYELI Lozano/john paul /12:29 PM /10:39 AM
--- NOTE | 2016-10-04 13:25 | HHI.PR ---
Subjective Subjective Remarks s/p lap rubia 10/03 s/p ERCP with stone removal 10/04 mild abd. tenderness no n/v passing gas getting ready to eat c/o urinary urgency, dribbling, bladder scan > 800 cc was straight cath, no hx of BPH, f/u with Dr. Kearns for annual exams. No hx of urinary problems Review of Systems Constitutional Constitutional Remarks 12 point ROS completed, negative except as noted above Vitals/Results Intake & Output 10/03/16 10/03/16 10/04/16 15:00 23:00 07:00 Intake Total 500 ml 630 ml 1361 ml Output Total 5 ml 750 ml 600 ml Balance 495 ml -120 ml 761 ml Intake Oral 480 ml 240 ml IV Total 150 ml 1121 ml Other 500 ml Output Urine Total 750 ml 600 ml Estimated Blood Loss 5 ml # Bowel Movements 0 0 Vital Signs Vital Signs Date Time Temp Pulse Resp B/P Pulse Ox O2 Delivery O2 Flow Rate FiO2 10/04/16 12:50 98 21 10/04/16 12:00 96.1 51 18 130/82 99 10/04/16 10:51 97.4 64 16 138/86 100 Room Air 10/04/16 10:45 61 12 126/76 96 10/04/16 10:37 97.4 74 13 124/74 99 2 10/04/16 09:25 96.1 70 18 128/85 98 10/04/16 08:00 96.1 70 18 128/85 98 10/04/16 04:00 98.0 90 20 129/76 98 10/04/16 00:00 97.8 92 20 136/74 98 10/03/16 20:00 92 10/03/16 20:00 98.0 102 20 142/85 97 10/03/16 17:00 97.6 75 16 144/91 96 Room Air 10/03/16 17:00 98.0 76 16 136/95 97 10/03/16 16:00 97.6 72 16 152/92 96 Room Air 10/03/16 15:00 69 16 141/83 96 Room Air 10/03/16 14:30 73 16 149/86 95 Room Air 10/03/16 14:00 97.5 70 16 159/90 95 Room Air 10/03/16 13:45 69 16 159/93 94 Room Air 10/03/16 13:30 71 16 161/98 94 Room Air CBC/BMP: 10/04/16 0525 10/04/16 0525 Lab Results Laboratory Tests Test 10/04/16 05:25 White Blood Count 13.2 TH/MM3 Red Blood Count 4.84 MIL/MM3 Hemoglobin 14.5 GM/DL Hematocrit 42.1 % Mean Corpuscular Volume 86.9 FL Mean Corpuscular Hemoglobin 29.9 PG Mean Corpuscular Hemoglobin 34.4 % Concent Red Cell Distribution Width 13.6 % Platelet Count 269 TH/MM3 Mean Platelet Volume 7.6 FL Sodium Level 140 MEQ/L Potassium Level 3.9 MEQ/L Chloride Level 104 MEQ/L Carbon Dioxide Level 28.6 MEQ/L Anion Gap 7 MEQ/L Blood Urea Nitrogen 12 MG/DL Creatinine 1.14 MG/DL Estimat Glomerular Filtration 65 ML/MIN Rate Random Glucose 104 MG/DL Calcium Level 8.2 MG/DL Total Bilirubin 1.7 MG/DL Aspartate Amino Transf 103 U/L (AST/SGOT) Alanine Aminotransferase 227 U/L (ALT/SGPT) Alkaline Phosphatase 111 U/L Total Protein 6.7 GM/DL Albumin 3.3 GM/DL Physical Exam General General Appearance: Well Developed, Well Nourished, No Acute Distress, Comfortable Eyes Eye Exam: Pupils Equal, Pupils Reactive Ears & Nose Ears & Nose Exam: Nasal Mucosa [place] Throat Throat Exam: Oral Mucosa [place] & Moist Neck Neck Exam: Neck Supple Pulmonary Resp Exam: Breath Sounds Equal, No Distress Cardiology CV Exam: Regular, Good Perfusion Gastrointestinal/Abdomen GI Exam: Soft, Bowel Sounds Present, Non-Distended GI Remarks abd. incisions intact Musculoskeletal MS Exam: Joints Intact Integumentary Skin Exam: Warm, Intact Extremeties Extremities Exam: No Edema, Pedal Pulses Palpable Neurologic Neuro Exam: Alert, Awake, Oriented, Speech Clear, Moving All Extremities, No Focal Deficits Psychiatric Psych Exam: Appropriate Responses VTE Prophylaxis VTE Prophylaxis Device: SCDs Assessment/Plan Problem List: (1) Gallbladder sludge (2) Chest pain (3) Choledocholithiasis (4) HTN (hypertension) (5) Elevated LFTs (6) LEANDRO (acute kidney injury) Assessment/Plan abd. pain, hx GB disease appreciate GI and surgical input LFTs trending down HIDA scan results noted continue IVF Pain management S/P Lap rubia with IOC, Lap core liver biopsy 10/03; findings of 2 small stones cbd on IOC evaluated by GI, ERCP recommended S/P ERCP with stone extraction 10/04 adv diet stable, continue to monitor LEANDRO, resolving continue IVF BMP in am Urinary retention, c/o urinary hesitancy, dribbling- ? etiology, anesthesia, no hx of BPH bladder scan > 800 cc straight cath started on Flomax pt. f/u with Dr. Kearns annually for exams. Already has appointment and will follow up SCDs for DVT prophylaxis continue with post op care improving, poss. home tomorrow D/W RN D/W Dr. Rsos D/W pt This patient was seen by myself and Dr. Ross, this pt. was seen on is behalf. Problem Qualifiers (1) Chest pain: Qualified Code: R07.9 - Chest pain, unspecified type (2) HTN (hypertension): Qualified Code: I10 - Essential hypertension [facility] October 04, 2016 13:25
[2016-10-04] MEDS: ENOXAPARIN SODIUM 40 MG/0.4 ML SYRINGE SQ SCH (20:07)
[2016-10-05] VITALS: BP 145/88; PULSE 63; RESP 20; TEMP 97.4; O2SAT 100
[2016-10-05] MEDS: MORPHINE SULFATE 4 MG/ML INJ IV PRN (00:01)
[2016-10-05 04:00] VITALS: BP 146/87; PULSE 72; RESP 20; TEMP 98.1; O2SAT 97
[2016-10-05 04:56] LABS: ALT (GPT) 217 U/L (12-78); ANION GAP 7 MEQ/L (5-15); AST (GOT) 133 U/L (15-37); BICARBONATE 28.4 MEQ/L (21.0-32.0); BLOOD UREA NITROGEN 11 MG/DL (7-18); CHLORIDE 107 MEQ/L (98-107); GLOMERULAR FILTRATION RATE 78 ML/MIN (>89); POTASSIUM 3.7 MEQ/L (3.5-5.1); SODIUM (NA) 142 MEQ/L (136-145)
[2016-10-05 04:58] LABS: ALKALINE PHOSPHATASE 118 U/L (45-117); TOTAL BILIRUBIN ADULT 1.4 MG/DL (0.2-1.0)
[2016-10-05 08:00] VITALS: BP 143/82; PULSE 66; RESP 20; TEMP 98; O2SAT 97
[2016-10-05] MEDS ORDERED: HYDR-3533 PO (08:09)
--- NOTE | 2016-10-05 08:12 | HHI.PR ---
Subjective Subjective Notes doing well. Feels better. Now voiding on own. has minimal abdominal pain Objective Vitals/I&O Vital Signs Date Time Temp Pulse Resp B/P Pulse Ox O2 Delivery O2 Flow Rate FiO2 10/05/16 04:00 98.1 72 20 146/87 97 10/04/16 12:50 21 10/04/16 10:51 Room Air 10/04/16 10:37 2 Labs Laboratory Tests Test 10/05/16 03:10 Sodium Level 142 Potassium Level 3.7 Chloride Level 107 Carbon Dioxide Level 28.4 Anion Gap 7 Blood Urea Nitrogen 11 Creatinine 0.97 Estimat Glomerular Filtration 78 Rate Random Glucose 78 Calcium Level 8.0 Total Bilirubin 1.4 Aspartate Amino Transf 133 (AST/SGOT) Alanine Aminotransferase 217 (ALT/SGPT) Alkaline Phosphatase 118 Total Protein 6.2 Albumin 3.1 Abdomen: Non-distended, Other (incisions all healing well), Post-op tenderness Extremities: No edema A/P Assessment and Plan POD 2 s/p lap rubia, with IOC, lap liver biopsy. s/p ERCP. LFTS trending to normal. Advance diet, DC IVFs, Regular diet, po pain meds. Home later today or tomorrow. Anthony Bartlett MD October 05, 2016 08:12
[2016-10-05] MEDS: SODIUM CHLORIDE 0.9% FLUSH 10 ML FLUSH IV FLUSH SCH ×4 (08:57→20:56)
[2016-10-05] MEDS: TAMSULOSIN HCL 0.4 MG CAP PO SCH (09:10)
[2016-10-05] MEDS: PANTOPRAZOLE SOD 40 MG DELAYED RELEASE TAB PO SCH (09:10)
[2016-10-05] MEDS: ACETAMINOPHEN/HYDROcodone 325 MG/5 MG TAB PO PRN ×2 (09:16→19:36)
--- NOTE | 2016-10-05 09:52 | HHI.DCPOC ---
Discharge Care Plan Your Health Problems Are: Appetite Changes Goals to Promote Your Health * To prevent worsening of your condition and complications * To maintain your health at the optimal level Directions to Meet Your Goals Take your medications as prescribed Follow your dietary instruction Follow activity as directed Keep your appointments as scheduled Take your immunizations and boosters as scheduled If your symptoms worsen call your PCP, if no PCP go to Urgent Care Center or Emergency Room Smoking is Dangerous to Your Health. Avoid second hand smoke Call the 24-hour hour crisis hotline for domestic abuse at [facility]. [facility] October 05, 2016 09:52
--- NOTE | 2016-10-05 11:16 | HHI.GIFU ---
Subjective Remarks sitting up in chair NAD mild abdominal discomfort....afebrile Objective Vitals I&O Vital Signs Date Time Temp Pulse Resp B/P Pulse Ox O2 Delivery O2 Flow Rate FiO2 10/05/16 08:00 98.0 66 20 143/82 97 10/05/16 04:00 98.1 72 20 146/87 97 10/05/16 00:00 97.4 63 20 145/88 100 10/04/16 20:00 99.1 66 20 139/86 99 10/04/16 16:56 97.2 68 18 132/79 96 10/04/16 16:00 97.2 68 18 132/79 96 10/04/16 12:50 98 21 10/04/16 12:00 96.1 51 18 130/82 99 I/O 10/04/16 10/04/16 10/04/16 10/05/16 10/05/16 10/05/16 07:00 15:00 23:00 07:00 15:00 23:00 Intake Total 1361 ml 789 ml 480 ml 1050 ml Output Total 600 ml 500 ml 300 ml 1200 ml Balance 761 ml 289 ml 180 ml -150 ml Intake Oral 240 ml 480 ml 0 ml IV Total 1121 ml 489 ml 1050 ml Other 300 ml Output Urine Total 600 ml 500 ml 300 ml 1200 ml Bladder Scan Volume Amount 877 ml # Voids 1 # Bowel Movements 0 Laboratory Laboratory Tests Test 10/05/16 03:10 Sodium Level 142 Potassium Level 3.7 Chloride Level 107 Carbon Dioxide Level 28.4 Anion Gap 7 Blood Urea Nitrogen 11 Creatinine 0.97 Estimat Glomerular Filtration 78 Rate Random Glucose 78 Calcium Level 8.0 Total Bilirubin 1.4 Aspartate Amino Transf 133 (AST/SGOT) Alanine Aminotransferase 217 (ALT/SGPT) Alkaline Phosphatase 118 Total Protein 6.2 Albumin 3.1 Physical Exam CARDIAC: Regular rate and rhythm with no murmur gallop or rubs. ABDOMEN: Soft, mild distention , nontender;; bowel sounds are present SKIN: Normal; no rash; no jaundice. Assessment and Plan Assessment: (1) Choledocholithiasis Plan S/P Lap choly, ERCP w stone extractions LFts trending down but still elevated....may resolve gradually appears stable GI discussed w pt Antonio Ramos MD October 05, 2016 11:16
--- NOTE | 2016-10-05 11:58 | HHI.PR ---
Subjective Subjective Remarks s/p lap rubia 10/03 s/p ERCP with stone removal 10/04 no abd. pain passing gas tolerating diet well, no n/v no bm yet anxious to go home no fever Review of Systems Constitutional Constitutional Remarks 12 point ROS completed, negative except as noted above Vitals/Results Intake & Output 10/04/16 10/04/16 10/05/16 15:00 23:00 07:00 Intake Total 789 ml 480 ml 1050 ml Output Total 500 ml 300 ml 1200 ml Balance 289 ml 180 ml -150 ml Intake Oral 480 ml 0 ml IV Total 489 ml 1050 ml Other 300 ml Output Urine Total 500 ml 300 ml 1200 ml Bladder Scan Volume Amount 877 ml # Voids 1 Vital Signs Vital Signs Date Time Temp Pulse Resp B/P Pulse Ox O2 Delivery O2 Flow Rate FiO2 10/05/16 08:00 98.0 66 20 143/82 97 10/05/16 04:00 98.1 72 20 146/87 97 10/05/16 00:00 97.4 63 20 145/88 100 10/04/16 20:00 99.1 66 20 139/86 99 10/04/16 16:56 97.2 68 18 132/79 96 10/04/16 16:00 97.2 68 18 132/79 96 10/04/16 12:50 98 21 10/04/16 12:00 96.1 51 18 130/82 99 CBC/BMP: 10/04/16 0525 10/05/16 0310 Lab Results Laboratory Tests Test 10/05/16 03:10 Sodium Level 142 MEQ/L Potassium Level 3.7 MEQ/L Chloride Level 107 MEQ/L Carbon Dioxide Level 28.4 MEQ/L Anion Gap 7 MEQ/L Blood Urea Nitrogen 11 MG/DL Creatinine 0.97 MG/DL Estimat Glomerular Filtration 78 ML/MIN Rate Random Glucose 78 MG/DL Calcium Level 8.0 MG/DL Total Bilirubin 1.4 MG/DL Aspartate Amino Transf 133 U/L (AST/SGOT) Alanine Aminotransferase 217 U/L (ALT/SGPT) Alkaline Phosphatase 118 U/L Total Protein 6.2 GM/DL Albumin 3.1 GM/DL Physical Exam General General Appearance: Well Developed, Well Nourished, No Acute Distress, Comfortable Eyes Eye Exam: Pupils Equal, Pupils Reactive Ears & Nose Ears & Nose Exam: Nasal Mucosa [place] Throat Throat Exam: Oral Mucosa [place] & Moist Neck Neck Exam: Neck Supple Pulmonary Resp Exam: Breath Sounds Equal, No Distress Cardiology CV Exam: Regular, Good Perfusion Gastrointestinal/Abdomen GI Exam: Soft, Bowel Sounds Present, Non-Distended GI Remarks abd. incisions intact Musculoskeletal MS Exam: Joints Intact Integumentary Skin Exam: Warm, Intact Extremeties Extremities Exam: No Edema, Pedal Pulses Palpable Neurologic Neuro Exam: Alert, Awake, Oriented, Speech Clear, Moving All Extremities, No Focal Deficits Psychiatric Psych Exam: Appropriate Responses VTE Prophylaxis VTE Prophylaxis Device: SCDs Assessment/Plan Problem List: (1) Gallbladder sludge (2) Chest pain (3) Choledocholithiasis (4) HTN (hypertension) (5) Elevated LFTs (6) LEANDRO (acute kidney injury) Assessment/Plan abd. pain, hx GB disease appreciate GI and surgical input HIDA scan results noted dc IVF Pain management S/P Lap rubia with IOC, Lap core liver biopsy 10/03; findings of 2 small stones cbd on IOC evaluated by GI, ERCP recommended S/P ERCP with stone extraction 10/04 tolerating diet well. LFT still elevated but trending down. LEANDRO, resolved dc IVF Urinary retention, c/o urinary hesitancy, dribbling- ? etiology, anesthesia, no hx of BPH bladder scan > 800 cc, was straight cathed continue with Flomax pt. f/u with Dr. Kearns annually for exams. Already has appointment and will follow up SCDs for DVT prophylaxis seen by Dr. Ramos and Dr. Bartlett today, poss dc today. Poss dc today or tomorrow lab slip to have LFTs in 3 days Diet-heart healthy Activity-as tolerated. No heavy lifting, pushing D/W RN D/W Dr. Ross D/W pt This patient was seen by myself and Dr. Ross, this pt. was seen on is behalf. Discharge Minutes: 40 Problem Qualifiers (1) Chest pain: Qualified Code: R07.9 - Chest pain, unspecified type (2) HTN (hypertension): Qualified Code: I10 - Essential hypertension [facility] October 05, 2016 11:58
[2016-10-05 12:00] VITALS: BP 164/73; PULSE 85; RESP 17; TEMP 96.5; O2SAT 94
[2016-10-05] MEDS ORDERED: LACTULOSE SYRUP 20 GM/30 ML CUP PO ONE (13:00)
[2016-10-05 16:00] VITALS: BP 137/81; PULSE 73; RESP 18; TEMP 97.6; O2SAT 98
--- NOTE | 2016-10-05 18:14 | MR ---
cc: REBECCA SADLER M.D. DATE 10/04/16 DATE OF 1950 INDICATION FOR PROCEDURE The patient recent with laparoscopic cholecystectomy. __ revealed two small stones in the common bile duct. The patient has abnormal liver enzymes as well. ERCP is being performed for a stone extraction attempt via ERCP. MEDICATIONS Administered by anesthesiology. MONITORING Monitoring was constant pulse oximeter, EKG, blood pressure monitor. PROCEDURE NOTE After informed consent was obtained, the procedure risks, benefits were explained including the risks of bleeding, sepsis, perforation, risk of anesthesia, risks of pancreatitis 10% or better. The patient was placed in left lateral position and the video forward scope was inserted per the oral route. Upper endoscopic evaluation was essentially benign. Esophagus was normal. Stomach was normal. The duodenum was unremarkable. The stomach did have a slight J shaped configuration. Two small gastric polyps were found, these were left intact. The scope was withdrawn and the ERCP scope was introduced and passed with slight difficulty through the ampullary region. The ampulla appeared to be normal and small. Using the sphincterotome with a wire the selective cannulation of the common bile duct was achieved with filling with contrast. The common bile duct itself appeared to be nondilated. The proximal tree was unremarkable. There was a question of a small filling defect in the distal duct. Therefore, using the guidewire guidance the sphincterotome was passed to the ampullary orifice and a sphincterotomy about 6-7 mm was achieved. No bleeding was noted. A 8.5 mm balloon was then passed over the guidewire after the sphincterotome was removed and extraction with the balloon inflated revealed 2 to 3 small stones. Further balloon passage and extraction failed to reveal any other debris or stones. The duct itself was lavaged with saline and this appeared to be clear. Reinjection of contrast failed to reveal any obvious stones, there was some air injection noted. All the equipment was then extracted and removed. The patient tolerated the procedure well. No immediate complications were noted. He was sent to recovery room in stable condition. IMPRESSION This examination revealed two and possibly even a third stone that were removed by balloon extraction after the sphincterotomy. The patient tolerated the procedure well. PLAN If the patient continues to do well we will hopefully discharge him in the next 24 hours. Advance diet as tolerated. Will discuss the findings. MD SYDNI Mallory /11:03 AM /5:54 PM
[2016-10-05 20:00] VITALS: BP 159/100; PULSE 77; RESP 20; TEMP 97.1; O2SAT 99
[2016-10-05] MEDS: ENOXAPARIN SODIUM 40 MG/0.4 ML SYRINGE SQ SCH (20:57)
[2016-10-06] VITALS: BP 143/89; PULSE 73; RESP 20; TEMP 97.8; O2SAT 97
[2016-10-06 05:26] LABS: INDIRECT BILIRUBIN 0.6 MG/DL (0.0-0.8); TOTAL BILIRUBIN ADULT 0.9 MG/DL (0.2-1.0)
[2016-10-06 08:00] VITALS: BP 148/88; PULSE 65; RESP 17; TEMP 96.3; O2SAT 95
[2016-10-06] MEDS: SODIUM CHLORIDE 0.9% FLUSH 10 ML FLUSH IV FLUSH SCH ×2 (08:04)
[2016-10-06] MEDS: TAMSULOSIN HCL 0.4 MG CAP PO SCH (08:05)
[2016-10-06] MEDS: PANTOPRAZOLE SOD 40 MG DELAYED RELEASE TAB PO SCH (08:05)
--- NOTE | 2016-10-06 11:17 | HHI.PR ---
Subjective Subjective Remarks s/p lap rubia 10/03 s/p ERCP with stone removal 10/04 no abd. pain had a couple of BMs after MOM no n/n tolerating diet well anxious to go home Review of Systems Constitutional Constitutional Remarks 12 point ROS completed, negative except as noted above Vitals/Results Intake & Output 10/05/16 10/05/16 10/06/16 15:00 23:00 07:00 Intake Total 240 ml 480 ml 480 ml Balance 240 ml 480 ml 480 ml Intake Oral 240 ml 480 ml 480 ml # Voids 3 3 2 # Bowel Movements 2 3 1 Vital Signs Vital Signs Date Time Temp Pulse Resp B/P Pulse Ox O2 Delivery O2 Flow Rate FiO2 10/06/16 08:00 96.3 65 17 148/88 95 10/06/16 00:00 97.8 73 20 143/89 97 10/05/16 20:00 97.1 77 20 159/100 99 10/05/16 16:00 97.6 73 18 137/81 98 10/05/16 12:00 96.5 85 17 164/73 94 CBC/BMP: 10/04/16 0525 10/05/16 0310 Lab Results Laboratory Tests Test 10/06/16 04:25 Total Bilirubin 0.9 MG/DL Direct Bilirubin 0.3 MG/DL Indirect Bilirubin 0.6 MG/DL Aspartate Amino Transf 117 U/L (AST/SGOT) Alanine Aminotransferase 216 U/L (ALT/SGPT) Alkaline Phosphatase 113 U/L Total Protein 6.7 GM/DL Albumin 3.3 GM/DL Physical Exam General General Appearance: Well Developed, Well Nourished, No Acute Distress, Comfortable Eyes Eye Exam: Pupils Equal, Pupils Reactive Ears & Nose Ears & Nose Exam: Nasal Mucosa [place] Throat Throat Exam: Oral Mucosa [place] & Moist Neck Neck Exam: Neck Supple Pulmonary Resp Exam: Breath Sounds Equal, No Distress Cardiology CV Exam: Regular, Good Perfusion Gastrointestinal/Abdomen GI Exam: Soft, Bowel Sounds Present, Non-Distended GI Remarks abd. incisions intact Musculoskeletal MS Exam: Joints Intact Integumentary Skin Exam: Warm, Intact Extremeties Extremities Exam: No Edema, Pedal Pulses Palpable Neurologic Neuro Exam: Alert, Awake, Oriented, Speech Clear, Moving All Extremities, No Focal Deficits Psychiatric Psych Exam: Appropriate Responses VTE Prophylaxis VTE Prophylaxis Device: SCDs Assessment/Plan Problem List: (1) Gallbladder sludge (2) Chest pain (3) Choledocholithiasis (4) HTN (hypertension) (5) Elevated LFTs (6) LEANDRO (acute kidney injury) Assessment/Plan abd. pain, hx GB disease appreciate GI and surgical input HIDA scan results noted dc IVF Pain management S/P Lap rubia with IOC, Lap core liver biopsy 10/03; findings of 2 small stones cbd on IOC evaluated by GI, ERCP recommended S/P ERCP with stone extraction 10/04 tolerating diet well. LFTs trending down LEANDRO, resolved dc IVF Urinary retention, c/o urinary hesitancy, dribbling- ? etiology, anesthesia, no hx of BPH bladder scan > 800 cc, was straight cathed continue with Flomax pt. f/u with Dr. Kearns annually for exams. Already has appointment and will follow up SCDs for DVT prophylaxis stable for dc, had BM, eating well LFTs continue to trend down, better today lab slip to have LFTs in 3 days Diet-heart healthy Activity-as tolerated. No heavy lifting, pushing D/W RN D/W Dr. Ross D/W pt This patient was seen by myself and Dr. Ross, this pt. was seen on is behalf. Discharge Minutes: 40 Problem Qualifiers (1) Chest pain: Qualified Code: R07.9 - Chest pain, unspecified type (2) HTN (hypertension): Qualified Code: I10 - Essential hypertension [facility] October 06, 2016 11:17
--- NOTE | 2016-10-06 11:17 | HHI.DS ---
Discharge Summary Admission Date October 03, 2016 at 13:03 Discharge Date: October 06, 2016 Admitting Diagnosis atypical chest pain, abdominal pain, transaminitis (1) Choledocholithiasis (2) Chest pain (3) HTN (hypertension) (4) Gallbladder sludge (5) Elevated LFTs (6) LEANDRO (acute kidney injury) (7) Status post cholecystectomy Procedures S/P Lap rubia with IOC, Lap core liver biopsy 10/03; findings of 2 small stones cbd on IOC S/P ERCP with stone extraction 10/04 CBC/BMP: 10/04/16 0525 10/05/16 0310 Significant Findings Laboratory Tests Test 10/04/16 10/05/16 10/06/16 05:25 03:10 04:25 White Blood Count 13.2 TH/MM3 (4.0-11.0) Estimat Glomerular Filtration 65 ML/MIN (>89) 78 ML/MIN (>89) Rate Calcium Level 8.2 MG/DL 8.0 MG/DL (8.5-10.1) (8.5-10.1) Total Bilirubin 1.7 MG/DL 1.4 MG/DL (0.2-1.0) (0.2-1.0) Aspartate Amino Transf 103 U/L (15-37) 133 U/L (15-37) 117 U/L (15-37) (AST/SGOT) Alanine Aminotransferase 227 U/L (12-78) 217 U/L (12-78) 216 U/L (12-78) (ALT/SGPT) Albumin 3.3 GM/DL 3.1 GM/DL 3.3 GM/DL (3.4-5.0) (3.4-5.0) (3.4-5.0) Alkaline Phosphatase 118 U/L (45-117) Total Protein 6.2 GM/DL (6.4-8.2) Direct Bilirubin 0.3 MG/DL (0.0-0.2) Hospital Course This is a pleasant 65 year old male who has had two years of intermittent epigastric, abdominal and chest pain. The patient states that he has not found any particular pattern that seems to bring it on. He has had multiple episodes over the last two years. He has actually been hospitalized at [facility]. He had an upper endoscopy which was reported to be normal. He also describes an endoscopic ultrasound which is also reported to be normal. He has had HIDA scans at [facility]. He is not sure of the results of that. He has seen Dr. Bartlett, the surgeon who recommended his gallbladder come out. The patient deferred having this done. The patient states that today around 10:30 in the morning he developed severe epigastric pain. It seemed to radiate. It was burning pain up into his chest. It was worse when he would take a deep breath. He felt nauseated. His appetite became very poor. He had excruciating pain going to both sides. He waited several hours and them came to [facility]. He has received several doses of morphine and Zofran. He was still having some discomfort. It has improved and it is not severe anymore but just moderate. He felt a little bit lightheaded with the pain. LABORATORY DATA Creatinine 1.32, GFR estimated at 55, random glucose 156. Total bilirubin 2.8. Direct 1, indirect 1.8. GGT 556. AST 182, ALT 29, alkaline phosphatase 94. Troponin T is negative. Lipase is normal at 158. Urinalysis shows glucose 70. CBC shows white count 13.5. IMAGING STUDIES Ultrasound of the gallbladder shows the liver is diminished in size with small hepatic cyst and free fluid, small amount of sludge in the gallbladder. No gallstones or biliary dilatation. No hydronephrosis. Chest x-ray shows bibasilar atelectasis. CARDIOLOGY STUDIES Electrocardiogram showed sinus bradycardia with no acute changes. Pt. admitted for: (1) Gallbladder sludge (2) Chest pain (3) Choledocholithiasis (4) HTN (hypertension) (5) Elevated LFTs (6) LEANDRO (acute kidney injury) During the course of the hospitalization, the following took place: Pt. admitted, he was ruled out for myocardial infarction. Serial troponins were ordered and repeat electrocardiogram LFTs repeated in the am. He was gently hydrated. PRN medications to control his blood pressure were ordered. Pain medicines and antiemetics PRN ordered. HIDA scan ordered as the gallbladder appeared to be the mostly likely culprit for his symptoms. Dr. Bartlett was consulted to follow up with the patient as he has seen him as an outpatient and has recommended his gallbladder be removed in the past. Pt. indicated he was ready for surgery if indicated. HIDA scan done, results as noted Gastroenterology was consulted as well. Dr. Ramos discussed with surgery and okay for patient to proceed with lap cholecystectomy. Patient underwent lap cholecystectomy with IOC, Lap core liver biopsy on 10/03; findings of 2 small stones cbd on IOC The next day patient was a value by GI. ERCP recommended S/P ERCP with stone extraction 10/04 Tolerated procedures well, diet was advanced. Patient tolerated well, no nausea , no vomiting. LFTs remain moderately elevated, they started trending down slowly. Patient was cleared by both GI and surgery for discharge. He was recommended to have repeat LFTs in one week as OP Chest pain was ruled out, cardiac enzymes remain negative Patient was noted in acute kidney injury, he was put on IV fluids. BMP was monitor. Creatinine improved, Postop, patient had urinary retention. c/o urinary hesitancy, dribbling- ? etiology, anesthesia, no hx of BPH bladder scan > 800 cc, was straight cathed Started on Flomax Patient voided okay after, no more problems. pt. f/u with Dr. Kearns annually for exams. Already had appointment and will follow up SCDs for DVT prophylaxis stable for dc, had BM, eating well LFTs continue to trend down, continued to improve. lab slip to have LFTs in 5 days Diet-heart healthy Activity-as tolerated. No heavy lifting, pushing Pt Condition on Discharge: Stable Discharge Disposition: Discharge Home Discharge Instructions DIET: Follow Instructions for: Heart Healthy Diet Activities you can perform: Weight Bearing as Dennise, See Additionl Instruction Other Activity Instructions: no heavy lifting, pushing Follow up Referrals: Surgical - 1 Week with Anthony Bartlett MD New Medications: Hydrocodone-Acetaminophen (Lortab) 5-325 Mg Tab 1 TAB PO Q4H PRN PAIN #20 Ref 0 TAB Jina PennP October 06, 2016 11:17
--- NOTE | 2016-10-06 11:37 | HHI.GIFU ---
Subjective Remarks Pt feel great no abdominal pain or n/v LFTs slowly decreasing Objective Vitals I&O Vital Signs Date Time Temp Pulse Resp B/P Pulse Ox O2 Delivery O2 Flow Rate FiO2 10/06/16 08:00 96.3 65 17 148/88 95 10/06/16 00:00 97.8 73 20 143/89 97 10/05/16 20:00 97.1 77 20 159/100 99 10/05/16 16:00 97.6 73 18 137/81 98 10/05/16 12:00 96.5 85 17 164/73 94 I/O 10/05/16 10/05/16 10/05/16 10/06/16 10/06/16 10/06/16 07:00 15:00 23:00 07:00 15:00 23:00 Intake Total 1050 ml 240 ml 480 ml 480 ml Output Total 1200 ml Balance -150 ml 240 ml 480 ml 480 ml Intake Oral 0 ml 240 ml 480 ml 480 ml IV Total 1050 ml Output Urine Total 1200 ml # Voids 3 3 2 # Bowel Movements 2 3 1 Laboratory Laboratory Tests Test 10/06/16 04:25 Total Bilirubin 0.9 Direct Bilirubin 0.3 Indirect Bilirubin 0.6 Aspartate Amino Transf 117 (AST/SGOT) Alanine Aminotransferase 216 (ALT/SGPT) Alkaline Phosphatase 113 Total Protein 6.7 Albumin 3.3 Physical Exam CARDIAC: Regular rate and rhythm with no murmur gallop or rubs. ABDOMEN: Soft, mild distention , nontender;; bowel sounds are present SKIN: Normal; no rash; no jaundice. Assessment and Plan Assessment: (1) Choledocholithiasis Plan S/P Lap choly, ERCP w stone extractions LFTS trending downward very slowly...pt appears stable for DC and woylf F/U lfts in 1-2 weeks as outpt discussed w Antonio Correa MD October 06, 2016 11:37
== END 2016-10-06 12:28 | disposition home or self-care (01) | DRG 418 ==
LOC: NEPC 16:03 → INTOOBSV 20:24 → NEDA 20:24 → NEPFCDU 21:55 → OBSVTOIN 10-03 13:03 → N07B 10-03 17:10
PROVIDERS: ADMIT Specialist; ATTEND Specialist
PROC: 0FB04ZX Excision of Liver, Percutaneous Endoscopic Approach, Diagnostic (ICD-10-PCS; 2016-10-03)
PROC: BF131ZZ Fluoroscopy of Gallbladder and Bile Ducts using Low Osmolar Contrast (ICD-10-PCS; 2016-10-03)
PROC: 0FT44ZZ Resection of Gallbladder, Percutaneous Endoscopic Approach (ICD-10-PCS; principal; 2016-10-03 10:45)
PROC: 0FC98ZZ Extirpation of Matter from Common Bile Duct, Via Natural or Artificial Opening Endoscopic (ICD-10-PCS; 2016-10-04)
PROC: 0F798ZZ Dilation of Common Bile Duct, Via Natural or Artificial Opening Endoscopic (ICD-10-PCS; 2016-10-04)
DX: K80.46 Calculus of bile duct with acute and chronic cholecystitis without obstruction (principal); N17.9 Acute kidney failure, unspecified; K76.0 Fatty (change of) liver, not elsewhere classified; J98.11 Atelectasis; K76.89 Other specified diseases of liver; I10 Essential (primary) hypertension; E78.5 Hyperlipidemia, unspecified; K21.9 Gastro-esophageal reflux disease without esophagitis; R33.9 Retention of urine, unspecified; K31.7 Polyp of stomach and duodenum
CPT/HCPCS: 71010; 71275; 74300; 74330; 76700; 78226; 80048; 80053; 80074; 80076; 81001; 82550; 82552; 82977; 83605; 83690; 84484; 85025; 85027; 85379; 85610; 88304; 88307; 88313; 93005; 94150; 96361; 96374; 96375; 96376; A9537; C1769; C9113; G0378; J0131; J0690; J1100; J1650; J2060; J2250; J2270; J2405; J2710; J3010; J7030; J7120; Q9967